=== PATIENT | female | born 2000 | race Caucasian/White ===

== ENCOUNTER 2024-12-13 16:59 | Emergency (ER) | payer OTHER, SELFPAY ==
[2024-12-13 17:03] VITALS: BP 140/83
--- NOTE | 2024-12-13 18:33 | ED.GENMED ---
History of Present Illness
General
Chief Complaint: DVT/Possible Blood Clot
Source: patient
Exam Limitations: none
Time Seen by Provider: 12/13/24 18:01
Nursing documentation reviewed up to this point in time: agreed with
History of Present Illness
History of Present Illness:
24-year-old female with no past medical history who presents emergency department today with concerns of right calf pain that started yesterday. Patient reports that she did not have any injury to the area and reports that she first noticed the
pain when she was sitting down. She states that later today, the pain got worse with walking. She took Excedrin for headache and states that that did not help with the calf pain. Patient states that the pain today got worse and she went to urgent
care and she was sent to emergency department for further evaluation. She denies any swelling lower extremity. She denies any recent hospitalizations, any recent long distance travel, any chest pain or shortness of breath. Patient reports that
she had episode yesterday when she was walking up a flight of stairs and her legs felt fatigued after short distance. She denies any numbness or tingling in her extremities or any overlying rashes. She does take oral control pills.
Past History
Past History
ED Past Medical History: None
ED Past Surgical History: None
Social History
Tobacco: Non-smoker
Alcohol: Occasional
Drug: None
Personal: Single
Living: with family
Employment: Student
Family History
Family History: Negative Early CAD, Sudden or Other (denies h/o bleeding disorders)
Review of Systems
Review of Systems
All Other Systems: ROS reviewed and negative except as documented in HPI and ROS
Phy Exam
Physical Exam
Physical Exam:
General: Patient is well appearing and in no acute distress; non-toxic
Skin: Warm and dry, no rashes or lesions
Head: Normocephalic, atraumatic
Eyes: Sclera non-icteric. EOMs intact. PERRLA.
Cardiac: Regular rate and rhythm, no murmurs
Peripheral Vascular: No lower extremity swelling or edema, 2+ dorsalis pedis and posterior tibial pulses bilaterally
Pulm: Normal respiratory effort, no wheezes, crackles, rhonchi
Musculoskeletal: Full range of motion of bilateral lower extremities, no palpable bony deformities. Tenderness to palpation over the right calf
Neuro: CN II-XII intact, no focal neurologic deficits.
Psychiatric: Appropriate mood and affect.
Course
Orders/Labs/Results
Orders:
Orders
12/13/24 17:06
US Periph Venous LOWER Ext RT Urgent
Comment:
Reason For Exam: calf pain
12/13/24 20:07
Ibuprofen [Motrin] 600 mg PO NOW STA
Vital Signs
Initial and Last Documented VS:
Initial Vital Signs
Temp Pulse Resp BP Pulse Ox
98.1 F 89 18 140/83 100
12/13/24 17:03 12/13/24 17:03 12/13/24 17:03 12/13/24 17:03 12/13/24 17:03
Last Documented Vital Signs
Temp Pulse Resp BP Pulse Ox
98.1 F 89 18 140/83 100
12/13/24 17:03 12/13/24 17:03 12/13/24 17:03 12/13/24 17:03 12/13/24 18:37
MDM/Problems Addressed
Differential Diagnosis Includes:
DVT, superficial phlebitis, calf sprain,
MDM/Problems Addressed:
24-year-old female presents emergency department today with concerns of right calf pain lower extremity since yesterday. It has been getting worse. She does take oral contraceptives. On exam she has tenderness palpation of the right calf but she
has no overlying rash, no swelling, she is intact distal pulses and intact sensation. Her DVT study is negative for any DVT. Suspect calf strain. Patient given ibuprofen. Discussed return precautions. Patient stable for discharge.
*Critical Care Note
Total Time (30-74mins, 75-104mins- exclusive of procedures): Not Applicable
Update Note
Update Note:
I went to go update patient on her results of the ultrasound. Patient expressed concern that the ultrasound was negative and is concerned that she does not know what is wrong. Patient states that is also started to experience generalized bloating
for the past few days and states that occasionally he will get cramping in her abdomen and burning that radiates into the chest and indigestion. Currently she is not having abdominal pain or chest pain. I reexamined patient and she does not have
any tenderness to palpation. I did offer blood work and EKG for further evaluation of the symptoms however patient states that she has a severe phobia of needles and states that she will need to be medicated or sedated to get blood work. Advised
patient that the symptoms that she has been having likely do not represent an emergency however blood work may tell us more. Patient states that she prefers to follow-up with her primary in December. I think this is reasonable.Patient requesting a
prescription medication to help with these abdominal symptoms. Did recommend [id number] however patient elected to try PPI. Symptoms consistent with GERD but did stress the need to follow up with PCP or GI regarding this and discussed
strict ED rerturn precautions. Prescription sent. Patient given ibuprofen for her calf pain. Considering she had no clear injury, do not think any x-ray or any further workup is necessary at this time. Patient stable for discharge
ED Attending Note
-
Portions of this chart may have been created with voice recognition software.� Occasional wrong word or��sound alike� substitutions may have occurred due to the inherent limitations of voice recognition software.
Discharge Plan
Departure
Patient Disposition: Home (Routine Discharge)
Date of Disposition: 12/13/24
Time of Disposition: 20:35
Patient with high blood pressure during this ER visit?: Yes
Condition: Good
Discharge Problem:
Pain of right calf, Indigestion
Instructions: Acid reflux and GERD in adults, BLOOD PRESSURE
Prescriptions:
New
pantoprazole 20 mg tablet,delayed release (DR/EC)
20 mg PO DAILY 14 Days Qty: 14 0RF
No Action
abatacept (with maltose) [Orencia (with maltose)] 250 MG/10 ML recon soln
250 mg PO DAILY
Referrals:
Justin Nicole MD [Active] - Call in 1-3 days for appt
UNKNOWN - PT DOES,NOT KNOW [Family Provider] -
Activity Restrictions/Additional Instructions:
Your ultrasound was negative for DVT.
Regards to your abdominal symptoms, you can try taking pantoprazole, which is in the class of medications called PPIs. You can take one tablet once daily for 2 week trial. If your symptoms persist, I recommend following up with your primary care
provider and potentially seeing project mgr for further evaluation.
Please follow-up with your primary care provider as scheduled in December.
PLEASE RETURN EMERGENCY DEPARTMENT SHOULD YOU DEVELOP FEVERS, INTRACTABLE NAUSEA OR VOMITING, ABDOMINAL PAIN, DARK TARRY STOOLS, BLOOD IN YOUR STOOLS/RECTAL BLEEDING, SHORTNESS OF BREATH, CHEST PAIN, OR ANY OTHER SIGNS OR SYMPTOMS WORRISOME TO YOU.
Interventions
Interventions:
*Risk Screen - Suicide Last Done: 12/13/24 17:03
*General Assessment Last Done: 12/13/24 17:06
*Neglect/Abuse Screening Last Done: 12/13/24 21:36
*ED COVID-19 Vaccine History Last Done: 12/13/24 17:03
*Nursing Disposition Last Done: 12/13/24 21:36
ED- Cardiac Assessment Last Done: 12/13/24 18:37
ED- Pulmonary Assessment Last Done: 12/13/24 18:37
ED-Peripheral Vascular Assessment Last Done: 12/13/24 18:37
ED-Skin Assessment Last Done: 12/13/24 18:37
Discharge Date and Time
Discharge Date/Time: 12/13/24 21:37
Print Language: WALLISIAN
[2024-12-13 18:37] VITALS: BMI 25.7
[2024-12-13] MEDS: MOTRIN 600 MG PO (20:22)
== END 2024-12-13 21:37 | disposition home or self-care (01) ==
LOC: EMR 16:59
PROVIDERS: EMERGENCY PHYSICIAN Emergency Medicine
DX: M79.661 Pain in right lower leg (principal); K30 Functional dyspepsia
CPT/HCPCS: 99284; 93971